=== PATIENT | male | born 1980 | race Caucasian/White ===

== ENCOUNTER → 2024-03-08 | Outpatient (CLI) | payer BC ==
--- NOTE | 2024-03-08 20:05 | CT ---
EXAMINATION TYPE: CT abdomen pelvis wo con CT DLP: 1639.2 mGycm, Automated exposure control for dose reduction was used. DATE OF EXAM: 03/08/2024 4:57 PM COMPARISON: None CLINICAL INDICATION:Male, 44 years old with history of R31.9 HEMATURIA, UNSPECIFIED; hematuria, flank pain TECHNIQUE: Standard CT of the abdomen and pelvis without IV or oral contrast. Lack of IV or oral co ntrast limits evaluation of solid and hollow organ viscera. Coronal and sagittal reformats were perfo rmed. FINDINGS: LOWER CHEST: Unremarkable ABDOMEN LIVER: Unremarkable noncontrast appearance. GALLBLADDER AND BILE DUCTS: Unremarkable noncontrast appearance. PANCREAS: Unremarkable noncontrast appearance. SPLEEN: Unremarkable noncontrast appearance. ADRENAL GLANDS: Unremarkable noncontrast appearance. KIDNEYS AND URETERS: No evidence of hydronephrosis. No left renal calculi. Nonobstructive right renal lower pole 3 mm calculus. No ureteral calculi identified. No perinephric fluid collections or strand ing. PELVIS BLADDER: Unremarkable REPRODUCTIVE: Unremarkable. ABDOMEN & PELVIS STOMACH AND BOWEL: Stomach and duodenum are unremarkable. No focal bowel wall thickening or surroundi ng inflammatory changes. The appendix is not identified. No evidence of bowel obstruction. PERITONEUM: No evidence of pneumoperitoneum or free fluid. VASCULATURE: No evidence of aortic aneurysm. MUSCULOSKELETAL: No acute osseous abnormalities. Mild disc degeneration changes are present throughou t the thoracolumbar spine. LYMPH NODES: No gross evidence for lymphadenopathy. SOFT TISSUE/ABDOMINAL WALL: Tiny fat filled umbilical hernia. IMPRESSION: 1. No evidence for acute abdominal/pelvic process within the limitations of noncontrast exam. No obs tructive uropathy. 2. Nonobstructive 3 mm right renal calculus. [facility], , 03/08/2024 8:03 PM
== END | disposition home or self-care (01) ==
LOC: RADCTMAIN 16:04
PROVIDERS: ATTEND Emergency Medicine
DX: N20.0 Calculus of kidney (principal); R31.9 Hematuria, unspecified
CPT/HCPCS: 74176